=== PATIENT | male | born 1950 | race Caucasian/White ===

== ENCOUNTER → 2017-02-04 | Outpatient (CLI) | payer OTHER, BC ==
[~2017-02-04] MED LIST: ASPEC81 PO; ASPI81TA28 PO; CALC500C3 PO; CHOL1TAB63 PO; METH1LOZ SL; OXYSR10 PO; RXC5 PO; VTMD1000 PO; [UNRECOGNIZED DRUG - REMARK] PO
[2017-02-10 19:16] LABS: 18KDIGG BAND NONREACTIVE (NONREACTIVE); 23KDIGG BAND NONREACTIVE (NONREACTIVE); 23KDIGM BAND NONREACTIVE (NONREACTIVE); 28KDIGG BAND NONREACTIVE (NONREACTIVE); 30KDIGG BAND NONREACTIVE (NONREACTIVE); 39KDIGG BAND NONREACTIVE (NONREACTIVE); 39KDIGM BAND NONREACTIVE (NONREACTIVE); 41KDIGG BAND NONREACTIVE (NONREACTIVE); 41KDIGM BAND NONREACTIVE (NONREACTIVE); 45KDIGG BAND NONREACTIVE (NONREACTIVE); 58KDIGG BAND NONREACTIVE (NONREACTIVE); 66KDIGG BAND NONREACTIVE (NONREACTIVE); 93KDIGG BAND NONREACTIVE (NONREACTIVE)
--- NOTE | 2017-04-12 12:32 | CODING QUERY MEDICAL NECESSITY ---
SUPPORTING DIAGNOSIS NEEDED A supporting diagnosis is required for the test/procedure performed on this patient in order for us to be reimbursed by the patient's insurance. Please provide a supporting diagnosis for the following test/procedure listed below next to the test name along with your signature. *If there is no additional diagnosis for this patient that would support the following test/procedure please document that below next to the test/procedure. Test(s)/Procedure(s) that require a supporting diagnosis: * HEMOGLOBIN A1C DIAGNOSIS: Provider Signature: Date: Thank you Yelitza Sornesen [employer] Once completed, please kindly fax back to [phone] For questions please call [phone]
== END | disposition home or self-care (01) ==
LOC: C.LAB 13:17
PROVIDERS: ATTEND Physician Assistant
DX: Z01.810 Encounter for preprocedural cardiovascular examination (principal); Z01.811 Encounter for preprocedural respiratory examination; Z01.812 Encounter for preprocedural laboratory examination; S70.361A Insect bite (nonvenomous), right thigh, initial encounter; W57.XXXA Bitten or stung by nonvenomous insect and other nonvenomous arthropods, initial encounter

== ENCOUNTER 2017-03-04 07:27 | Inpatient (IN) | payer OTHER, BC ==
[2017-02-04 13:25] VITALS: BMI 34.0
--- NOTE | 2017-02-04 13:59 | PAT Medication Instructions ---
Service Date Feb 04, 2017. Current Home Medication List Aspirin (Aspirin Ec), 81 MG PO HS Calcium Carbonate (Tums), 4 TAB PO qday Cholecalciferol (Vitamin D3), 1 TAB PO BID Cholecalciferol (Vitamin D3), 1 TAB PO 1xweek Methylcobalamin (Methyl B-12), 5,000 MCG SL 2XWK [gastric bypass ], 1 TAB PO BID Medication Instructions For Your Scheduled Surgery - Hold the following medications the morning of surgery: [gastric bypass ], 1 TAB PO BID Calcium Carbonate (Tums), 4 TAB PO qday Methylcobalamin (Methyl B-12), 5,000 MCG SL 2XWK (, wed) Cholecalciferol (Vitamin D3), 1 TAB PO BID Cholecalciferol (Vitamin D3), 1 TAB PO 1xweek (wed) - Take the following medications as scheduled the night before surgery: [gastric bypass ], 1 TAB PO BID Aspirin (Aspirin Ec), 81 MG PO HS Calcium Carbonate (Tums), 4 TAB PO qday Cholecalciferol (Vitamin D3), 1 TAB PO BID Nothing to eat or drink after midnight. No meds AM of surgery If you have any questions please call us at [phone] or [phone] or [phone]
--- NOTE | 2017-02-04 14:30 | DIAGNOSTIC IMAGING REPORT ---
CHEST PREADMISSION(PA/LAT) HISTORY:66 yearsMalePAT . Preoperative exam. COMPARISON: None available. TECHNIQUE: Frontal and lateral views of the chest. FINDINGS: Cardiomediastinal and hilar silhouettes are within normal limits. There is atherosclerosis of the aorta. No pneumothorax, pleural effusion or focal airspace consolidation. No overt edema. Moderate osteoarthritis involves the bilateral glenohumeral joints. Bridging osteophytes are seen throughout the thoracic spine. IMPRESSION: No acute cardiopulmonary process. The above report was generated using voice recognition software. It may contain grammatical, syntax or spelling errors. Electronically signed by: Catrachito Blanchard 02/04/2017 2:28 PM Dictated Date/Time: 02/04/2017 2:27 PM
[2017-02-04 14:44] LABS: BASO % 0.2 %; BASO ABS # 0.02 K/uL (0-0.2); COMPLETE YES; EOS % 1.8 %; HEMATOCRIT 45.9 % (42-52); IG% 0.2 %; LYMPH % 25.9 %; LYMPH ABS # 2.19 K/uL (1.2-3.4); MEAN CELL VOLUME 87.8 fL (80-100); MEAN CORPUSCULAR HEMOGLOBIN 28.9 pg (25-34); MEAN CORPUSCULAR HGB CONC 32.9 g/dl (32-36); MONO % 5.7 %; NEUT % 66.2 %; PLATELET COUNT 262 K/uL (130-400); RED BLOOD COUNT 5.23 M/uL (4.7-6.1); WHITE BLOOD COUNT 8.47 K/uL (4.8-10.8)
[2017-02-04 14:48] LABS: URINE APPEARANCE CLEAR (CLEAR); URINE BILIRUBIN NEG (NEG); URINE COLOR YELLOW; URINE NITRITE NEG (NEG); URINE SPECIFIC GRAVITY 1.034 (1.000-1.030); UROBILINOGEN NEG (NEG)
[2017-02-04 14:50] LABS: MANUAL MICROSCOPIC REQUIRED? NO; REVIEW REQ? NO
[2017-02-04 15:00] LABS: PROTHROMBIN TIME (PATIENT) 10.2 SECONDS (9.0-12.0)
[2017-02-04 16:35] LABS: BUN/CREATININE RATIO 19.5 (10-20); CREATININE 0.75 mg/dl (0.60-1.40); POTASSIUM 4.1 mmol/L (3.5-5.1)
[2017-02-05 06:07] LABS: ESTIMATED AVERAGE GLUCOSE 123 mg/dl; HA1C FLAG Normal (Normal)
--- NOTE | 2017-03-01 12:39 | History and Physical ---
History & Physical Date Mar 01, 2017. Chief Complaint Left knee pain History of Present Illness The patient is a 66 year old male with complaints of Left Knee pain. The pain has been chronic and non-traumatic. He has tried conservative therapies that include NSAIDs, Cortisone injections and PT with no relief. He would like to proceed with a Left total knee arthroplasty. Past Medical/Surgical History PMHx: (1) Osteoarthritis (2) History of Atrial Fibrillation PSHx: (1) Gastric Bypass (2) Lithotripsy (3) Left Elbow surgery Additional History Hepatic Disease: No Endocrine Disorder: No Kidney Disease: No Hypertension: No Heart Disease: No Bleeding Tendencies: No Infectious Diseases: No Allergies Coded Allergies: No Known Allergies (Unverified , 02/04/17) Home Medications Scheduled Aspirin (Aspirin Ec), 81 MG PO HS Calcium Carbonate (Tums), 4 TAB PO qday Cholecalciferol (Vitamin D3), 1 TAB PO BID Cholecalciferol (Vitamin D3), 1 TAB PO 1xweek Methylcobalamin (Methyl B-12), 5,000 MCG SL 2XWK [gastric bypass ], 1 TAB PO BID Physical Examination Skin: warm/dry, no rash Eyes: normal inspection, EOMI ENT: normal ENT inspection Head: normocephalic, atraumatic Neck: supple, no adenopathy Respiratory/Chest: lungs clear, normal breath sounds Cardiovascular: regular rate, rhythm, no murmur Abdomen / GI: normal bowel sounds, non tender Extremities: normal inspection, + pertinent finding (Patient is able to flexion to 115 degrees and extend to 0 degrees. There is medial joint line tenderness. Ligaments are intact. ) Neurologic/Psych: no motor/sensory deficits, alert, oriented x 3 Diagnosis Left knee Primary osteoarthritis Plan of Treatment Patient has failed conservative therapy on NSAIDs, Cortisone injections and PT. We discussed surgical procedures. He would like to proceed with a Left Total Knee arthroplasty. He will be scheduled for a Left total knee arthroplasty. Risks and benefits to surgery were discussed that include but not limit to infection, DVT, pain, stiffness, need for revision surgery, damage to blood vessels, damage to nerves, PE, and anesthesia risks were all discussed with the patient and they wish to proceed. He will have Aspirin 81mg BID for DVT prophylaxis.
[2017-03-04] VITALS (7 sets, daily range): BP systolic 110–152; BP diastolic 66–89; PULSE 58–72; TEMP 36.6–36.9; O2SAT 95–97; Ht 175.3 cm; Wt 106.7 kg
[~2017-03-04] VITALS: Ht 175.3 cm; Wt 106.7 kg
[~2017-03-04 07:27] MED LIST changes: +ACETAMINOPHEN 500 MG TAB PO SCH; -ASPEC81 PO; +BUPIVACAINE 0.5 % 5 MG/1 ML PF 10ML VIAL ONE; +CEFAZOLIN 2000 MG/60 ML D5W 60 ML IV SCH; +CeleBREX 200 MG CAP PO SCH; +DEXAMETHASONE 4 MG TAB PO SCH; +FAMOTIDINE 20 MG TAB PO SCH; +GABAPENTIN 300 MG CAP PO SCH; +LACTATED RINGER'S 1000ML 1,000 ML IV SCH; +LACTATED RINGER'S 1000ML 500 ML IV ONE; +LACTATED RINGER'S 1000ML IV SCH; +METOCLOPRAMIDE HCL 10 MG TAB PO SCH; -OXYSR10 PO; +ROPIVACAINE 5MG/ML 30 ML 150 MG, BUPIVACAINE/EPINEPHR 0.5% MPF 30 ML, KETOROLAC TROMETH... INFIL SCH; -RXC5 PO; +TRANEXAMIC ACID INJ 1,000 MG in SODIUM CHLORIDE 0.9% 100ML 100 ML IV SCH
--- NOTE | 2017-03-04 07:44 | History & Physical Bridge Note ---
H&P Re-Evaluation Bridge Note: I have examined the patient, reviewed the History & Physical and in the interval since the performance of the History & Physical I have noted the following changes of clinical significance: No changes noted
[2017-03-04] MEDS ORDERED: ORTHO JOINT ANESTHETIC ONE (08:09)
[2017-03-04] MEDS ORDERED: POVIDONE-IODINE OP SOLN 30 ML BTL ONE (08:09)
[2017-03-04] MEDS ORDERED: BACITRACIN 50000 UNIT VIAL ONE (08:10)
[2017-03-04] MEDS ORDERED: ATROPINE SULFATE 0.1 MG/ML 5ML SYR IV PRN (08:15)
[2017-03-04] MEDS ORDERED: EpHEDrine SULFATE INJ 50 MG/ML AMP IV PRN (08:15)
[2017-03-04] MEDS ORDERED: FENTANYL CITRATE INJ 50 MCG/1 ML 2 ML VIAL IV PRN (08:15)
[2017-03-04] MEDS ORDERED: ONDANSETRON INJ 2 MG/ML 2 ML VIAL IV PRN ×2 (08:15→12:00)
[2017-03-04] MEDS ORDERED: MIDAZOLAM HCL 1 MG/ML 2ML VIAL ONE (08:47)
[2017-03-04] MEDS ORDERED: FENTANYL CITRATE INJ 50 MCG/1 ML 2 ML VIAL ONE (08:47)
[2017-03-04] MEDS ORDERED: PROPOFOL IV EMULSION 10 MG/ML 20 ML VIAL IV ONE (09:47)
[2017-03-04] MEDS ORDERED: LIDOCAINE HCL 2% 2 ML VIAL (20MG/ML) ONE (09:47)
[2017-03-04] MEDS ORDERED: TAMSULOSIN HCL 0.4 MG CAP PO PRN (12:00)
[2017-03-04] MEDS ORDERED: ALUMINUM/MAGNESIUM/SIMETH (MAALOX MAX) 30 ML UDC PO PRN (12:00)
[2017-03-04] MEDS ORDERED: MoRPHine SULFATE 2 MG/ML CARP IV PRN (12:00)
[2017-03-04] MEDS ORDERED: MAGNESIUM HYDROXIDE SUSP 30 ML UDC PO PRN (12:00)
[2017-03-04] MEDS ORDERED: BISACODYL 10 MG SUPP PR PRN (12:00)
--- NOTE | 2017-03-04 12:22 | DIAGNOSTIC IMAGING REPORT ---
LEFT KNEE 1 OR 2 VIEWS ROUTINE CLINICAL HISTORY: 66 years-old Male presenting with status post knee arthroplasty. TECHNIQUE: Frontal and crosstable lateral views of the left knee were obtained. COMPARISON: None. FINDINGS: Postsurgical changes of total left knee arthroplasty with patellar resurfacing. Surgical drain in place with overlying skin anahi and expected soft tissue emphysema. No apparent fracture or malalignment. No hardware complication. IMPRESSION: Expected postoperative changes status post total left knee arthroplasty with patellar resurfacing. Electronically signed by: Alex Raphael M.D. 03/04/2017 12:21 PM Dictated Date/Time: 03/04/2017 12:20 PM
--- NOTE | 2017-03-04 12:39 | [facility] Operative Report ---
Operative Report Operative Date Mar 04, 2017. Pre-Operative Diagnosis Left knee Primary osteoarthritis Post-Operative Diagnosis Left knee Primary osteoarthritis Procedure(s) Performed Left Total Knee Arthroplasty Surgeon Dr. Alex Galindo Steam Press Tender Surgeon(s) Fredy Darling PA-C Estimated Blood Loss 100 ML Findings As above Specimens a. left knee bone and tissue Drains 2 Hemovac Anesthesia spinal Complication(s) None Disposition Recovery Room / PACU Indications 66-year-old male with endstage arthritis of the left knee. He has failed conservative measures including injections and anti-inflammatories. He wishes to proceed with a total knee arthroplasty. Description of Procedure Risks benefits and alternatives of surgery including but not limited to infection DVT pain stiffness need for surgery damage to blood vessels damage to nerves or risks of anesthesia were discussed with the patient and she wished to proceed. Patient was identified in the laterality was confirmed and marked. She received a preoperative antibiotic is also a spinal anesthetic and a abductor canal block. A well-padded tourniquet was applied and then the limb was prepped and draped in standard manner with ChloraPrep. The limb was exsanguinated and the tourniquet was inflated. I made a standard anterior incision. I sharply incised the skin then utilized Bovie electrocautery as well as the aqua mantis to achieve hemostasis. I made a medial parapatellar arthrotomy immobilized the patella laterally. I then excised the anterior horns of the medial and lateral meniscus as well as the infrapatellar fat pad. I elevated a portion of the MCL off of the tibia. I then pinned into place a patient-matched distal femoral cutting guide and made my distal femoral resection. I then pinned into place a size 7 5 in 1 cutting guide. I made my anterior, posterior and chamfer cuts. I then excised the cruciates and the remaining portions of the menisci. I then pinned into place a patient- matched tibial cutting guide and made my tibial resection. I then pinned into place a size 7 tibia utilizing alignment rods to confirm rotation. I then cut for the post. Utilizing a lamina piano regulator inspector and then removed posterior osteophytes off the femur. I then placed a trial femur into position and cut for the trochlear component. I then sequentially trialed to size 9 polyethylene. There was good soft tissue balancing and range of motion with this polyethylene. I then prepared the patella with a freehand cut utilizing sagittal saw. I sized and drilled for a size 38 patella. There was slight lateral tracking to the patella. A small lateral release was needed. The capsule was preserved. All the trial components were removed. The deep tissues were anesthetized with and ortho mix solution. Then with Simplex HV with gentamicin cement I cemented my definitive components. Definitive components, [employer] 2: Femur 7 Tibia 7 Poly 9 Patella 38 oval Betadine soak was performed. A deep drain was placed. The arthrotomy was closed with interrupted #1 Vicryl suture subcutaneous tissue was closed with interrupted 2-0 Vicryl suture and skin with anahi. Sterile dressings applied and the tourniquet was released. All needle and sponge counts were correct at the end of the procedure patient was transferred to the PACU in stable condition without apparent complication. The PA-C was necessary for assistance with procedure for assistance in positioning, prepping, draping, retraction and closure. I attest to the content of the Intraoperative Record and any orders documented therein. Any exceptions are noted below.
--- NOTE | 2017-03-04 12:55 | Anesthesiology Progress Note ---
Anesthesia Post Op Note Date & Time Mar 04, 2017 at 12:54 Vital Signs Pain Intensity: 0 Vital Signs Past 12 Hours Date Time Temp Pulse Resp B/P (MAP) Pulse Ox O2 Delivery O2 Flow Rate FiO2 03/04/17 12:29 62 16 110/71 98 Nasal Cannula 2 03/04/17 12:20 58 16 118/68 98 Nasal Cannula 2 03/04/17 12:10 36.8 60 16 121/67 98 Nasal Cannula 2 03/04/17 12:00 65 16 120/68 98 Oxymask 5 03/04/17 11:50 63 16 98/68 98 Oxymask 10 03/04/17 11:43 36.9 66 16 106/60 98 Oxymask 10 03/04/17 07:56 36.6 62 22 152/82 96 Room Air Notes Mental Status: alert / awake / arousable, participated in evaluation Pt Amnestic to Procedure: Yes Nausea / Vomiting: adequately controlled Pain: adequately controlled Airway Patency, RR, SpO2: stable & adequate BP & HR: stable & adequate Hydration State: stable & adequate Neuraxial Anesthesia: was administered, sensory block is resolving Anesthetic Complications: no major complications apparent
[2017-03-04] MEDS ORDERED: MoRPHine SULFATE 10 MG/ML CARP/VIAL IV PRN (13:00)
[2017-03-04] MEDS ORDERED: MoRPHine SULFATE 4 MG/ML 1 ML CARP\\VIAL IV PRN (13:00)
[2017-03-04] MEDS: D5W AND 1/2NSS + 20MEQ KCL 1,000 ML IV SCH ×2 (13:32→23:12)
[2017-03-04] MEDS: FERROUS GLUCONATE 324 MG TAB PO SCH ×2 (14:18→17:21)
[2017-03-04] MEDS: ACETAMINOPHEN 500 MG TAB PO SCH ×2 (14:19→21:07)
[2017-03-04] MEDS: CEFAZOLIN IV 2,000 MG in DEXTROSE 5% 50ML 50 ML IV SCH (17:22)
[2017-03-04] MEDS: OXYCODONE HCL IR 5 MG TAB (IMMEDIATE RELEASE) PO PRN (18:25)
[2017-03-04] MEDS ORDERED: [UNRECOGNIZED DRUG - OTHER] PO SCH (21:00)
[2017-03-04] MEDS: SENNA 8.6 MG TAB PO SCH (21:06)
[2017-03-04] MEDS: CHOLECALCIFEROL 1000 INTER.UNIT TAB PO SCH (21:06)
[2017-03-04] MEDS: OXYCODONE HCL 10 MG TABCR (OXYCONTIN) PO SCH (21:06)
[2017-03-04] MEDS: ASPIRIN 81 MG ECTAB PO SCH (21:06)
[2017-03-04] MEDS: DOCUSATE SODIUM 100 MG CAP PO SCH (21:06)
--- NOTE | 2017-03-04 21:53 | Discharge Instructions ---
Discharge Instructions Date of Service Mar 04, 2017. Admission Reason for Admission: Left Knee Osteoarthritis Discharge Discharge Diagnosis / Problem: S/P Left Total Knee Arthroplasty Discharge Goals Goal(s): Decrease discomfort, Improve function Activity Recommendations Activity Limitations: per Instructions/Follow-up section . Instructions / Follow-Up Instructions / Follow-Up ACTIVITY RECOMMENDATIONS: SELF CARE INSTRUCTIONS AFTER TOTAL KNEE REPLACEMENT A. You may need to continue a physical therapy program after discharge from the hospital. There are several options available to you. Your doctor will assist you in selecting the best one for you. 1. An out-patient facility 2 to 3 times a week for therapy or home therapy. 2. Continue working on all exercises taught to you in the hospital. Your goals should be to increase bending of your knee to 90 degrees and beyond and to fully straighten your knee. B. You may progress at your own pace from walking with a walker or crutches to a cane; then to no assistive devices. C. Make walking a part of your daily routine. Be up as much as comfortable with rest periods throughout the day. Rest with leg elevation is very important. Use the ice wrap frequently for the first 3-4 weeks. D. There are no restrictions on activities. You may ride in a car, shop, participate in advertising copy writer and all social activities. E. Wear the long elastic stockings (CHICHO hose) 20 hours a day for 2 weeks after surgery. They can be removed several times a day for laundering and for a bath. F. You may shower, no tub baths until cleared by your doctor. SPECIAL CARE INSTRUCTIONS: VERY IMPORTANT TO READ AND REVIEW A. There are a few signs you need to watch for after you are home. Call [facility] if you notice any of the followin. Increased severe knee pain. Some pain is expected especially when you exercise. 2. Increased swelling in your leg or knee; pain or swelling of the calf muscle in either lower leg. 3. Any fluid drainage from the incision. 4. Shortness of breath or chest pain. B. Please call [facility] at if you have any concerns or questions about your operation or recovery. The doctor or his nurse will return your call promptly. C. You must take antibiotics before dental work, bladder, bowel or other surgery. Your doctor will provide you with a permanent care to carry describing this precaution. IMPORTANT: * REMEMBER TO TAKE ASPIRIN, 81 MG, TWICE DAILY FOR 4 WEEKS UNLESS OTHERWISE DIRECTED. THIS IS YOUR BLOOD THINNER. * CALL IF INCREASED PAIN, REDNESS, DRAINAGE OR FEVER GREATER THAT 101. * WEAR CHICHO HOSE 20 HOURS PER DAY FOR 2 WEEKS. * YOU MAY HAVE A LARGE BAND-AID LIKE DRESSING (SILVERON). THIS WILL REMAIN ON YOUR INCISION FOR 7 DAYS, THEN CAN BE REMOVED. IF INCISION IS LEAKING THROUGH DRESSING, CALL THE OFFICE . FOLLOW UP VISIT: If appointment is not already scheduled: Please call [facility] to make a follow-up appointment for 2 weeks after your surgery at . Current Hospital Diet Patient's current hospital diet: Regular Diet Discharge Diet Recommended Diet: Regular Diet Procedures Procedures Performed: Left Total Knee Arthroplasty Pending Studies Studies pending at discharge: no Laboratory Results Hemoglobin A1c Test 02/04/17 14:07 Range/Units Estimated Average Glucose 123 mg/dl Hemoglobin A1c 5.9 H 4.5-5.6 % Medical Emergencies . Who to Call and When: Medical Emergencies: If at any time you feel your situation is an emergency, please call 911 immediately. . Non-Emergent Contact Non-Emergency issues call your: Surgeon Call Non-Emergent contact if: temperature is above 101.5, your pain is worsening, wound has increased drainage, wound has increased redness . "Provider Documentation" section prepared by Pramod Darling. . VTE Core Measure Inpt VTE Proph given/why not?: Other Anticoagulation [place] Drug Monitoring Program Search Results: patient reviewed within database, no issues identified
[2017-03-05] MEDS: CEFAZOLIN IV 2,000 MG in DEXTROSE 5% 50ML 50 ML IV SCH (01:23)
[2017-03-05 04:00] VITALS: BP 114/69; PULSE 54; TEMP 36.6; O2SAT 96
[2017-03-05] MEDS: ACETAMINOPHEN 500 MG TAB PO SCH ×3 (05:42→21:06)
[2017-03-05 06:02] LABS: HEMATOCRIT 38.6 % (42-52); MEAN CELL VOLUME 87.1 fL (80-100); MEAN CORPUSCULAR HEMOGLOBIN 28.7 pg (25-34); MEAN CORPUSCULAR HGB CONC 32.9 g/dl (32-36); MEAN PLATELET VOLUME 9.1 fL (7.4-10.4); PLATELET COUNT 235 K/uL (130-400); RED BLOOD COUNT 4.43 M/uL (4.7-6.1)
[2017-03-05 06:41] LABS: BUN/CREATININE RATIO 15.5 (10-20); CALCIUM 8.6 mg/dl (8.5-10.1); CREATININE 0.94 mg/dl (0.60-1.40)
--- NOTE | 2017-03-05 06:46 | Orthopedic Progress Note ---
Orthopedic Progress Note Date of Service Mar 05, 2017. Subjective Post OP Day: 1 Reports: feeling well, pain controlled w PO medications, Denies: complaints, chest pain, SOB, nausea / vomiting, light headedness, calf pain Additional Notes: Patient states that he is feeling well this morning. He denies calf pain. He states he did have some numbness in his foot but that has worn off since last night. Objective calves soft nontender, N/V intact, capillary refill less than 2 sec., dressing C /D/I, A&O x3, toes mobile, hemovac drainage (100mL) Dressing is clean dry and intact. His toes are mobile with no calf pain. Date Time Temp Pulse Resp B/P (MAP) Pulse Ox O2 Delivery O2 Flow Rate FiO2 03/05/17 04:00 36.6 54 16 114/69 (84) 96 Room Air 03/04/17 23:20 36.9 58 16 119/72 (88) 95 Room Air 03/04/17 19:15 Room Air 03/04/17 15:40 64 20 123/73 (90) 96 Nasal Cannula 2.0 03/04/17 15:03 66 18 128/80 (96) 97 03/04/17 13:40 72 18 110/69 (83) 96 03/04/17 13:10 65 18 144/89 (107) 97 03/04/17 12:40 Nasal Cannula 2.0 03/04/17 12:40 36.9 64 18 124/66 (85) 95 Nasal Cannula 03/04/17 12:40 95 Nasal Cannula 2.0 03/04/17 12:29 62 16 110/71 98 Nasal Cannula 2 03/04/17 12:20 58 16 118/68 98 Nasal Cannula 2 03/04/17 12:10 36.8 60 16 121/67 98 Nasal Cannula 2 03/04/17 12:00 65 16 120/68 98 Oxymask 5 03/04/17 11:50 63 16 98/68 98 Oxymask 10 03/04/17 11:43 36.9 66 16 106/60 98 Oxymask 10 03/04/17 07:56 36.6 62 22 152/82 96 Room Air Laboratory Results 24 Hours: Test 03/05/17 05:03 Hematocrit 38.6 % Hemoglobin 12.7 g/dL Assessment & Plan Assessment: POD #1 Left TKA Plan: PT/OT Discharge - Home with OPPT DVT prophylaxis - ASA Will be evaluated with neonatal social worker and PT this morning. If he does PT well and drain is producing minimal amount, we can get him discharged today. If drain continues to output, we will observe for one more day. Seen and examined, agree with above Inhouse Planning Pain Management: Oxycontin, PO Tylenol, Oxy IR Discharge Planning Discharge Planning: home with oppt Pain Management: Oxycontin, Oxy IR DVT Prophylaxis: TEDs, ASA Therapy: Physical Therapy
[2017-03-05 07:01] VITALS: BP 121/72; PULSE 56; TEMP 36.6; O2SAT 96
[2017-03-05] MEDS ORDERED: RXC5 PO (07:08)
[2017-03-05] MEDS ORDERED: ASPEC81 PO (07:08)
[2017-03-05] MEDS ORDERED: OXYSR10 PO (07:08)
[2017-03-05] MEDS: MULTIVITAMIN TAB PO SCH (08:22)
[2017-03-05] MEDS: FERROUS GLUCONATE 324 MG TAB PO SCH ×3 (08:22→18:18)
[2017-03-05] MEDS: CHOLECALCIFEROL 1000 INTER.UNIT TAB PO SCH ×2 (08:22→21:05)
[2017-03-05] MEDS: ASPIRIN 81 MG ECTAB PO SCH ×2 (08:23→21:04)
[2017-03-05] MEDS: DOCUSATE SODIUM 100 MG CAP PO SCH ×2 (08:23→21:04)
[2017-03-05] MEDS: OXYCODONE HCL 10 MG TABCR (OXYCONTIN) PO SCH ×2 (08:23→21:04)
[2017-03-05] MEDS: PANTOprazole SOD 40 MG TAB PO SCH (08:23)
[2017-03-05] MEDS: OXYCODONE HCL IR 5 MG TAB (IMMEDIATE RELEASE) PO PRN ×2 (08:24→13:23)
[2017-03-05] MEDS: D5W AND 1/2NSS + 20MEQ KCL 1,000 ML IV SCH ×2 (09:26→09:29)
--- NOTE | 2017-03-05 13:40 | Anesthesiology Progress Note ---
Anesthesia Post Op Note Date & Time Mar 05, 2017 at 13:39 Vital Signs Pain Intensity: 3.0 Vital Signs Past 12 Hours Date Time Temp Pulse Resp B/P (MAP) Pulse Ox O2 Delivery O2 Flow Rate FiO2 03/05/17 07:35 Room Air 03/05/17 07:01 36.6 56 18 121/72 (88) 96 Room Air 03/05/17 04:00 36.6 54 16 114/69 (84) 96 Room Air Notes Mental Status: alert / awake / arousable, participated in evaluation Pt Amnestic to Procedure: Yes Nausea / Vomiting: adequately controlled Pain: adequately controlled Airway Patency, RR, SpO2: stable & adequate BP & HR: stable & adequate Hydration State: stable & adequate Neuraxial Anesthesia: was administered, sensory block resolved Anesthetic Complications: no major complications apparent
[2017-03-05 14:54] VITALS: BP 107/66; PULSE 58; TEMP 36.7; O2SAT 97
[2017-03-05 16:30] VITALS: O2SAT 97
[2017-03-05] MEDS: SENNA 8.6 MG TAB PO SCH (21:00)
[2017-03-05 23:35] VITALS: BP 114/68; PULSE 60; TEMP 36.8; O2SAT 97
[2017-03-06] MEDS: OXYCODONE HCL IR 5 MG TAB (IMMEDIATE RELEASE) PO PRN ×3 (02:55→11:16)
[2017-03-06] MEDS: ACETAMINOPHEN 500 MG TAB PO SCH (05:51)
[2017-03-06 06:47] VITALS: BP 140/88; PULSE 66; TEMP 36.7; O2SAT 98
[2017-03-06] MEDS: ASPIRIN 81 MG ECTAB PO SCH (07:25)
[2017-03-06] MEDS: FERROUS GLUCONATE 324 MG TAB PO SCH (07:25)
[2017-03-06] MEDS: MULTIVITAMIN TAB PO SCH (07:25)
[2017-03-06] MEDS: OXYCODONE HCL 10 MG TABCR (OXYCONTIN) PO SCH (07:25)
[2017-03-06] MEDS: DOCUSATE SODIUM 100 MG CAP PO SCH (07:25)
[2017-03-06] MEDS: PANTOprazole SOD 40 MG TAB PO SCH (07:26)
[2017-03-06] MEDS: CHOLECALCIFEROL 1000 INTER.UNIT TAB PO SCH (07:27)
--- NOTE | 2017-03-06 08:38 | Orthopedic Progress Note ---
Orthopedic Progress Note Date of Service Mar 06, 2017. Subjective Post OP Day: 2 Reports: feeling well, pain controlled w PO medications, Denies: chest pain, SOB , nausea / vomiting, light headedness, calf pain Additional Notes: Stiffness with the knee today but PT and activity went well yesterday. Objective calves soft nontender, N/V intact, capillary refill less than 2 sec., dressing C /D/I (Silverlon in place. Saturated with blood. Will change before D/C.), A&O x3 , toes mobile Date Time Temp Pulse Resp B/P (MAP) Pulse Ox O2 Delivery O2 Flow Rate FiO2 03/06/17 07:30 Room Air 03/06/17 06:47 36.7 66 16 140/88 (105) 98 Room Air 03/05/17 23:45 Room Air 03/05/17 23:35 36.8 60 16 114/68 (83) 97 Room Air 03/05/17 16:30 97 Room Air 03/05/17 14:54 36.7 58 18 107/66 (80) 97 Room Air Assessment & Plan Assessment: POD #2 Left TKA Plan: PT/OT Discharge - Home with OPPT DVT prophylaxis - ASA Plan for d/c today. Seen and examined, agree with above Inhouse Planning Pain Management: Oxycontin, PO Tylenol, Oxy IR Discharge Planning Discharge Planning: home with oppt Pain Management: Oxycontin, Oxy IR DVT Prophylaxis: TEDs, ASA Therapy: Physical Therapy
[2017-03-06 11:10] VITALS: BP 140/88; PULSE 66; TEMP 36.7; O2SAT 98
--- NOTE | 2017-03-08 08:23 | Discharge Summary ---
Orthopedic Discharge Summary Admission Date/Reason Mar 04, 2017 at 07:50 Left Knee Osteoarthritis. Discharge Date/Disposition Mar 06, 2017 Home Diagnosis Principal Diagnosis: S/P Left Total Knee arthroplasty Medication Reconciliation As per discharge instructions Admission Physical Exam As per Admitting History & Physical. Hospital Course POD #1 patient was doing well. Pain was controlled with PO medications. He did have some extra drainage from the drain overnight. He was kept for additional observation of the drain. POD#2 patient was feeling well a little stiffness. His Silverlon dressing was saturated with blood. This was changed for him. He was sent home POD #2 with outpatient PT. Discharge Instructions Please refer to the electronic Patient Visit Report (Discharge Instructions) for additional information.
== END 2017-03-06 11:34 | disposition home or self-care (01) | DRG 470 ==
LOC: C.ACU 07:27 → C.3E 07:50 → ENRESERV 12:22
PROVIDERS: ADMIT Orthopaedic Surgery; ATTEND Orthopaedic Surgery
PROC: 0SRD0J9 Replacement of Left Knee Joint with Synthetic Substitute, Cemented, Open Approach (ICD-10-PCS; principal; 2017-03-04 09:45)
DX: M17.12 Unilateral primary osteoarthritis, left knee (principal); Z98.84 Bariatric surgery status

== ENCOUNTER 2022-12-02 10:53 | Observation (INO) ==
--- NOTE | 2022-11-19 08:46 | PAT Medication Instructions ---
Medication Instructions Date of Service November 19, 2022 Home Medications Celebrate Vitamin 1 dose PO QAM apixaban 5 mg tablet (Eliquis) 5 mg PO BID calcium citrate 600 mg PO BID cholecalciferol (vitamin D3) 125 mcg (5,000 unit) tablet (Vitamin D3) 125 mcg PO BID cyanocobalamin (vitamin B-12) 5,000 mcg sublingual tablet (Vitamin B-12) 5,000 mcg sublingual 2XWK hydrochlorothiazide 25 mg tablet 25 mg PO QAM ASK your prescriber and surgeon apixaban 5 mg tablet (Eliquis) 5 mg PO BID DO NOT take the morning of surgery Celebrate Vitamin 1 dose PO QAM calcium citrate 600 mg PO BID cholecalciferol (vitamin D3) 125 mcg (5,000 unit) tablet (Vitamin D3) 125 mcg PO BID cyanocobalamin (vitamin B-12) 5,000 mcg sublingual tablet (Vitamin B-12) 5,000 mcg sublingual 2XWK hydrochlorothiazide 25 mg tablet 25 mg PO QAM Take evening before surgery calcium citrate 600 mg PO BID cholecalciferol (vitamin D3) 125 mcg (5,000 unit) tablet (Vitamin D3) 125 mcg PO BID Other Notes If you have any questions please call us at [phone] or [phone] or [phone] or [phone]
--- NOTE | 2022-11-19 10:31 | Anesthesiology Consultation ---
Date of Service November 19, 2022 Assessment & Plan (1) Encounter for pre-operative examination: - Check BSG AM DOS - COVID screening: Per assessment on 11/19: No known COVID-19 positive contacts or current COVID-19 related symptoms. Travel screen negative. Patient vaccinated. At surgeon discretion if preop Covid testing being done. - Outpatient joint assessment: Pt currently scheduled for inpatient pathway. If surgeon requests review for outpatient joint pathway, patient is not recommended candidate for outpatient joint program from anesthesia standpoint. - Cardiology note (11/17/22): "Chicho is being scheduled for shoulder surgery on December 02 in [place]. He has described an exercise capacity of around 4 metabolic equivalents or higher without any exertional symptoms and therefore should be considered low risk for coronary ischemia with that upcoming surgery. He is at risk for recurrent atrial fibrillation. A postoperative e lectrocardiogram should be checked. He has a low risk to hold his Eliquis for 2 to 3 days prior to the surgery." Chart Review Chart Review: Acceptable Risk for Surgery and Patient seen in Pre Admission Testing Teaching & Discussion Pre-Anesthesia Teaching/Discussion Notes: Instructed NPO after midnight before surgery,except medications with 15 cc of water. Medication instructions provided according to the PAT guidelines. History Surgery Operation Date: 12/02/22 13:20 Proposed Procedures p Right Total Shoulder Arthroplasty - Anil Turner MD Height/Weight Height: 5 ft 9.5 in Weight: 113.2 kg Allergies Allergy/AdvReac Type Severity Reaction Status Date / Time No Known Allergies Allergy Unverified 11/18/22 16:33 Medications Home Medications Medication Instructions Recorded Confirmed Last Taken Celebrate Vitamin 1 dose PO QAM 11/18/22 11/18/22 Unknown apixaban 5 mg tablet (Eliquis) 5 mg PO BID 11/18/22 11/18/22 Unknown calcium citrate 600 mg PO BID 11/18/22 11/18/22 Unknown cholecalciferol (vitamin D3) 125 125 mcg PO BID 11/18/22 11/18/22 Unknown mcg (5,000 unit) tablet (Vitamin D3) cyanocobalamin (vitamin B-12) 5,000 mcg sublingual 2XWK 11/18/22 11/18/22 Unknown 5,000 mcg sublingual tablet (Vitamin B-12) hydrochlorothiazide 25 mg tablet 25 mg PO QAM 11/18/22 11/18/22 Unknown Past Medical History Medical History Atrial fibrillation on Eliquis Follows with Dr. Austin Clay ([facility]) Borderline diabetes mellitus Borderline hypertension Hearing deficit BL SIMS History of kidney stones Neuropathy LEs TOD (obstructive sleep apnea) Hx not reported per patient TOD "resolved" after weight loss per cardio notes Osteoarthritis Exercise / Class Metabolic Activity II 4-5 Yardwork/Stairs/Walk up hill (one FS (no CP, no SOB)) Past Family History Family History Other No family history of adverse response to anesthesia Past Surgical History Surgical History History of appendectomy History of colonoscopy History of cystoscopy multiple (r/t kidney stones) History of gastric bypass History of left knee replacement Left TKA (03/04/17): SAB at L3/4 (x1 attempt) + PNB at [facility] History of surgery on extremity LUE (r/t logging accident) Hx of LASIK Past Anesthesia History No Hx of Anesthesia Complications and No Family Hx of Anesthesia Complications History of PONV No Hx of PONV and No Hx of Motion Sickness Social History Smoking Status: Never smoker Do You Dip or Chew Tobacco: No (quit 30 years ago) Hx Alcohol Use: Yes Alcohol type: beer and wine alcohol intake frequency: a few times a week Hx Substance Use: No substance use type: does not use Review of Systems Patient denies chest pain, shortness of breath, dyspnea on exertion, fever, chills, cough, wheezing, palpitations. Physical Exam Vital Signs VITALS BP 132/80 P 71 TEMP 98.1 SP02 96%RA RESP 16 PHYSICAL Full cervical extension range of motion. Full TMJ range of motion. TMD 4 finger breaths Mallampati Score 4 (small oral opening) Dentition: upper full dentures Lungs: clear throughout to auscultation Cardiac: regular rate and rhythm, no murmurs noted Spine: normal Carotid arteries: negative bruit Extremities: no LE edema Lab Results Anesthesia Preop Results Results Anesthesia Widget: WBC 8.20 K/ul (4.8-10.8) 11/19/22 Hgb 14.3 g/dl (14.0-18.0) 11/19/22 Hct 44.6 % (42.0-52.0) 11/19/22 Plt 340 K/uL (130-400) 11/19/22 PT 11.0 Seconds (9.0-12.0) 11/19/22 PTT 28.8 Seconds (21.0-31.0) 11/19/22 INR 1.0 (0.9-1.1) 11/19/22 Urine Color Yellow 11/19/22 Urine Appearance Clear (Clear) 11/19/22 Urine pH 5.0 (4.5-7.5) 11/19/22 Urine Specific [place] 1.019 (1.000-1.030) 11/19/22 Urine Protein Negative (Negative) 11/19/22 Urine Glucose (UA) Negative (Negative) 11/19/22 Urine Ketones Negative (Negative) 11/19/22 Urine Blood Negative (Negative) 11/19/22 Urine Nitrite Negative (Negative) 11/19/22 Urine Bilirubin Negative (Negative) 11/19/22 Urine Urobilinogen Negative (Negative) 11/19/22 Urine Leukocyte Esterase Negative (Negative) 11/19/22 Blood Type O Positive 11/19/22 Antibody Screen NEGATIVE 11/19/22 Testing Laboratory Results 11/11/22 SODIUM 140 POTASSIUM 4.2 CHLORIDE 104 CO2 27 BUN 18 CREATININE 1.03 GLUCOSE 115 Electrocardiogram Date: 11/19/22 SR with first degree AVB at 67bpm. Chest X-Ray Date: 11/19/22 FINDINGS: Cardiac silhouette is enlarged. Atherosclerosis of the aorta. No pneumothorax, pleural effusion, airspace consolidation or pulmonary edema. Degenerative changes of the shoulders and spine. IMPRESSION: No acute process. Echocardiogram Date: 07/10/21 EF greater than 55%. Moderate concentric LVH. 3.8 cm aortic root and 3.7 cm ascending aortaboth mildly dilated. No significant valvular disease. COVID-19 Risk Screen Screening Information COVID-19 Screen Date: 11/19/22 Exposure 21 Days Family/Household +COVID Last 21 Days: No Exposure 10 Days Any COVID Exposure Last 10 Days: No Symptoms Last 10 Days Experienced COVID Sx Last 10 Days: No + COVID 0-90 Days COVID + in Last 0-90 Days: No
--- NOTE | 2022-11-25 11:01 | History & Physical Report ---
Date of Service November 25, 2022 Assessment & Plan (1) Primary osteoarthritis, right shoulder: Plan: Treatment options discussed with the patient. He has failed conservative measures. He would like to proceed with surgical intervention. Risks, benefits and alternatives to surgery including but not limited to infection, DVT, pain, stiffness, need for revision surgery, damage to blood vessels, damage to nerves, PE, , were discussed with the patient and they wish to proceed. Plan for right total shoulder arthroplasty scheduled for [facility] on December [address] Turner. Plan on outpatient physical therapy. We will resume home Eliquis postoperatively. All questions answered. Patient will follow-up postop. History of Present Illness Chief Complaint: Right shoulder pain Primary Care Provider: Susan Melvin MD 71-year-old male with past medical history significant for atrial fibrillation, sleep apnea, neuropathy who presents with ongoing right shoulder pain. Patient has failed conservative measures. Pain is interfering with his daily activities. He would like to proceed with surgical intervention. Patient denies headaches, sweats, fevers, chills, double vision, blurred vision, cough, sore throat, dysphagia, chest pain, sob, wheezing, n/v/d/c, numbness, tingling, fatigue, urinary symptoms, mood disorders. ROS positive for right shoulder pain and stiffness. Allergies Allergy/AdvReac Type Severity Reaction Status Date / Time No Known Allergies Allergy Unverified 11/18/22 16:33 Home Medications Medication Instructions Recorded Confirmed Type Celebrate Vitamin 1 dose PO QAM 11/18/22 11/18/22 History apixaban 5 mg tablet (Eliquis) 5 mg PO BID 11/18/22 11/18/22 History calcium citrate 600 mg PO BID 11/18/22 11/18/22 History cholecalciferol (vitamin D3) 125 125 mcg PO BID 11/18/22 11/18/22 History mcg (5,000 unit) tablet (Vitamin D3) cyanocobalamin (vitamin B-12) 5,000 mcg sublingual 2XWK 11/18/22 11/18/22 Hist ory 5,000 mcg sublingual tablet (Vitamin B-12) hydrochlorothiazide 25 mg tablet 25 mg PO QAM 11/18/22 11/18/22 History Past Med/Surg History Medical History Atrial fibrillation on Eliquis Follows with Dr. Austin Clay ([facility]) Borderline diabetes mellitus Borderline hypertension Hearing deficit BL SIMS History of kidney stones Neuropathy LEs TOD (obstructive sleep apnea) Hx not reported per patient TOD "resolved" after weight loss per cardio notes Osteoarthritis Surgical History History of appendectomy History of colonoscopy History of cystoscopy multiple (r/t kidney stones) History of gastric bypass History of left knee replacement Left TKA (03/04/17): SAB at L3/4 (x1 attempt) + PNB at [facility] History of surgery on extremity LUE (r/t logging accident) Hx of LASIK Family History Other No family history of adverse response to anesthesia Social History Smoking Status: Never smoker Second Hand Exposure: No; Hx Alcohol Use: Yes Alcohol type: beer and wine Hx Substance Use: No Preferred Language: Trinidadian Communication Ability: Effective Deboner Required: No Beliefs That Will Affect Care: None and Gnosticism Gnosticism Beliefs: Jainism Current Living Situation: Spouse Feels Safe at Home: Yes Assistive Devices: Denture - Upper, Glasses and Hearing Aid - Bilateral Review of Systems All systems reviewed & are unremarkable except as noted in HPI & below Physical Exam Constitutional: well developed and well nourished; no acute distress Eyes: PERRL, conjunctivae normal, anicteric sclerae ENMT: external ear and nose normal, oropharynx normal Neck: trachea midline, no thyromegaly Respiratory: normal respiratory effort, lungs clear to auscultation Cardiovascular: RRR, no murmur, no edema Musculoskeletal: Right shoulder: Diffuse tenderness. Crepitation with ROM. Negative impingement signs. Active painful ROM. FF to 120 degrees, abduction o 80 degrees, ER to 40 d egrees actively. Normal rotator cuff strength. Skin: no rashes, warm and dry Neurologic: patellar DTR's 2+ bilat, sensation intact Psychiatric: A+Ox3, euthymic affect Results & Data Diagnostic Findings Right shoulder radiographs demonstrate end-stage osteoarthritis right shoulder, [id number]-[id number] glenohumeral joint. Large inferior humeral spur. He has periarticular osteophytes. No proximal migration humeral head.
[~2022-12-02 10:53] MED LIST changes: -ASPI81TA28 PO; -CALC500C3 PO; -CEFAZOLIN 2000 MG/60 ML D5W 60 ML IV SCH; -CHOL1TAB63 PO; -DEXAMETHASONE 4 MG TAB PO SCH; -LACTATED RINGER'S 1000ML 1,000 ML IV SCH; -LACTATED RINGER'S 1000ML 500 ML IV ONE; -LACTATED RINGER'S 1000ML IV SCH; +LR 15ML/HR IV SCH; -METH1LOZ SL; -METOCLOPRAMIDE HCL 10 MG TAB PO SCH; +METOCLOPRAMIDE HCL 10 MG TABLET PO SCH; -ROPIVACAINE 5MG/ML 30 ML 150 MG, BUPIVACAINE/EPINEPHR 0.5% MPF 30 ML, KETOROLAC TROMETH... INFIL SCH; +TRANEXAMIC ACID 1,000 MG **IV Intra-op IV SCH; +TRANEXAMIC ACID 1,000 MG **IV Pre-op IV SCH; -TRANEXAMIC ACID INJ 1,000 MG in SODIUM CHLORIDE 0.9% 100ML 100 ML IV SCH; -VTMD1000 PO; -[UNRECOGNIZED DRUG - REMARK] PO; +ceFAZolin 2000MG 2,000 MG/15 ML SYR IV SCH; +dexAMETHasone 4 MG TAB PO SCH
[2022-12-02] MEDS ORDERED: MIDAZOLAM HCL 1 MG/ML 2ML VIAL ONE (11:45)
[2022-12-02] MEDS ORDERED: LIDOCAINE 2% 2 ML VIAL/AMP(20MG/ML) INFIL ONE (11:45)
[2022-12-02] MEDS ORDERED: ONDANSETRON INJ 2 MG/ML 2 ML VIAL ONE (11:45)
[2022-12-02] MEDS ORDERED: PROPOFOL IV EMULSION 10 MG/ML 20 ML VIAL IV ONE (11:45)
[2022-12-02] MEDS ORDERED: DEXAMETHASONE SOD INJ 4 MG/ML VIAL ONE (11:45)
[2022-12-02] MEDS ORDERED: fentaNYL citrate PF 100 MCG/2 ML VIAL ONE (11:45)
[2022-12-02] MEDS ORDERED: ROCURONIUM BROMIDE 10 MG/ML 5 ML VIAL IV ONE ×6 (11:46→15:18)
[2022-12-02] MEDS ORDERED: ePHEDrine sulfate 50 MG/ML AMP IV PRN (13:03)
[2022-12-02] MEDS ORDERED: ONDANSETRON INJ 2 MG/ML 2 ML VIAL IV PRN ×2 (13:03→19:23)
[2022-12-02] MEDS ORDERED: HYDROmorphone INJ 2 MG/ML SYR/VIAL IV PRN (13:03)
[2022-12-02] MEDS ORDERED: ATROPINE SULFATE 0.1 MG/ML 10ML SYR IV PRN (13:03)
[2022-12-02] MEDS ORDERED: fentaNYL citrate PF 100 MCG/2 ML VIAL IV PRN (13:03)
--- NOTE | 2022-12-02 14:34 | History & Physical Bridge Note ---
Date of Service December 02, 2022 History & Physical Bridge Note I have examined the patient, reviewed the History & Physical and in the interval since the performance of the History & Physical I have noted the following changes of clinical significance: no changes noted
[2022-12-02] MEDS ORDERED: EPINEPHrine HCL INJ 1 MG/ML 30ML ONE (15:31)
[2022-12-02] MEDS ORDERED: SUGAMMADEX SODIUM 200 MG/2 ML VIAL IV ONE (16:31)
[2022-12-02] MEDS ORDERED: MoRPHine SULFATE 2 MG/ML CARP ONE (16:33)
[2022-12-02] MEDS ORDERED: METOPROLOL TARTRATE 1 MG/ML VIAL IV ONE (17:09)
--- NOTE | 2022-12-02 18:03 | Operative Report ---
Post Operative Report Pre & Post Diagnosis Operation Date: 12/02/22 13:05 Pre-Op Diagnosis: Right Shoulder Primary glenohumeral joint osteoarthritis Post-Op Diagnosis: Right Shoulder Primary glenohumeral joint osteoarthritis, Biceps tendinopathy, tenosynovitis. I identified the patient and participated in the time-out.: Yes Procedure Operation Date: 12/02/22 13:05 Actual Procedures p Right Total Shoulder Arthroplasty(Right), biceps tenodesis and tenosynovectomy biceps tendon.- Anil Turner MD Surgeon Anil Turner MD Vegetable Canner César MARTÍNEZ Estimated Blood Loss 200 Findings Consistent with Post-Op Diagnosis Specimens Humeral head cut Drains 2 Hemovac Anesthesia Type General Regional Complications none Disposition Disposition: Recovery Room Indications 71-year-old male with chronic right shoulder pain and stiffness. Patient has advanced glenohumeral osteoarthritis with type A wear pattern no proximal migration normal strength and type I acromion. Patient has [id number] glenohumeral joint with typical inferior humeral osteophytes. Description of Procedure Patient was taken to the operating room anesthetized under regional block and general anesthetic. Patient was placed in a 40 degree beachchair position with a foam headrest protective eyewear all extremities padded teds and SCDs were placed. A towel roll was placed on the medial border of the scapula of the right upper extremity. The arm was examined and range of motion demonstrated 120 degrees flexion 70 degrees AB duction and 30 degrees external rotation. He was muscular and had some moderate obesity. An anterior deltopectoral approach was performed. Longitudinal incision was made in deltopectoral interval. Skin incised sharply and subcutaneous flaps elevated. The deltopectoral interval was identified. The cephalic vein demonstrated a large cephalic vein that was suited to taking it medial with large branches going off to the medial side and one smaller branch to the lateral side.. The branches to the deltoid were cauterized or tied off and then the vein was transposed medially with the pectoralis muscle. The upper centimeter of the pectoralis was released for inferior exposure. Biceps tendon demonstrated large fluid collection around the biceps tendon and extended up to the bicipital groove with chronic scarred tenosynovitis and some loose cartilaginous fragments in the sheath.. The biceps was tenodesed to the pectoralis tendon using #2 FiberWire [id number] sutures. Proximal biceps was resected. Rotator cuff findings demonstrated intact rotator cuff.. The circumflex vessels were tied off with silk ties and divided laterally. There was an anomalous type muscle over the subscapularis that went vertically and went from the subscapularis lower aspect to the conjoined tendon. This was reflected off the subscapularis but retracted with conjoined tendon with the other retractors. the the rotator interval was opened up and released down to the level of the glenoid. The subscapularis tendon was taken down with a transtendinous incision leaving a cuff of tissue for repair on the lesser tuberosity. The humeral head was gradually externally rotated with a blunt Hohmann retractor within the joint around the inferior spurs and the capsule was released off the bone of the humerus carefully as the humerus was gradually externally rotated and a Walsh elevator was used to assist in releasing the inferior capsule of the humerus. The humeral head findings demonstrated large inferior humeral osteophytes and eburnated bone with a very large humeral head. The inferior osteophytes were resected using an artist chisel and rongeur. A #1 Vicryl traction suture was placed into the free edge of the subscapularis tendon. A Fukuda retractor was placed into the joint. Capsule was released with Leal scissors down to the glenoid from the rotator interval down to the 5 o'clock position approximately staying above the level of the axillary nerve. An anterior Bankart retractor was placed. The glenoid and labral findings demonstrated chronically degenerated labrum and the glenoid had concentric central wear with 80% of the articular surface being eburnated and 20% of the superior surface still having very thin articular cartilage. An anterior-inferior and posterior inferior capsule release was performed electrocautery on bone and a Walsh elevator.Attention was taken back to the humeral head. Humeral head was exposed with extension and external rotation. The oscillating saw was used to make an anatomic neck cut removing the articular surface. All the circumferential remaining osteophytes were trimmed with a rongeur. The humerus was sized for a 2 nucleus and a 56 x 21 soft tissue balancing humeral head. The bone was assessed with a thumb press test and there was solid cancellous bone. The guide for the nucleus was placed centrally and then the guidepin was placed. The surface reamer was used followed by the central drill for the nucleus. The trial nucleus was inserted and the cut protector was placed. The humerus was retracted posterior to the glenoid . A Tornier retractor ,Hohmann retractors as well as an anterior Bankart retractor were placed. The glenoid was fully exposed. The Tornier Cortiloc glenoid was used. The large 40 radius size was chosen. The central drill hole was made followed by the reamer for the glenoid followed by widening the central hole for the central post. The guide for the peripheral drill holes was placed and the drill holes were made. The trial reduction performed with stable fixation. The trial removed and the glenoid copiously irrigated with pulsed saline solution. The drill holes were packed with epinephrine-soaked tampons. The [place] G cement was vacuum mixed. The large 40 radius Cortiloc glenoid component was then cemented in position after drying the glenoid after removal of the tampons. Fixation was excellent. All excess cement was cleared. When the cement cured we moved onto removing the cut protector doing a trial reduction with a 56 x 21 mm soft tissue balancing humeral head trial. Stability was assessed and was stable. Soft tissue tension on the subscapularis tendon was satisfactory. The trial components of the humeral head were removed and the 3 drill holes were made in the harder bone in the biceps groove area and transosseous #5 FiberWire sutures were placed. Then the humeral cut surface was reexposed with retractors and after irrigation the size 2 nucleus was impacted leaving it slightly proud until the 56 x 21 mm soft tissue balancing humeral head was placed into the nucleus and then both were impacted into the humerus with a tight press-fit. The humerus was reduced to the glenoid. The stability was verified. The subscapularis tendon was repaired in 2 [id number] #2 FiberWire sutures. Lateral row fixation was performed with interrupted [id number] #2 FiberWire sutures and rotator interval was closed with #2 FiberWire sutures. Range of motion demonstrated 145 degrees forward flexion 100 degrees abduction and 45 degrees external rotation without tension on the the repair. The pectoralis was repaired with hvurbw-ju-siibu #2 FiberWire sutures placing sutures back through the biceps tendon to reinforce the tenodesis. 2 Hemovac drains were placed. Th e deltopectoral interval was repaired with [id number] #1 Vicryl sutures. The subcutaneous tissue was repaired with 2-0 Vicryl sutures and the skin was closed with anahi. Sterile dressings were applied and a sling immobilizer. The patient tolerated the procedure well. Ze MARTÍNEZ acted as first responder throughout the procedure. He functioned as first responder assisting in all aspects of the procedure including patient positioning prepping draping, arm positioning, soft tissue retraction,, instrument management, subcutaneous and skin closure and postop care the patient as well. I attest to the content of the Intraoperative Record and any orders documented therein. Any exceptions are noted below.
--- NOTE | 2022-12-02 18:58 | Anesthesiology Progress Note ---
Date of Service December 02, 2022 Anesthesia Post Procedure Vital Signs Vital Signs: Temp Pulse Pulse Resp BP Pulse Ox O2 Del Method 12/02/22 18:35 66 15 149/85 H 93 Room Air 12/02/22 18:25 89 22 138/81 96 Oxymask 12/02/22 18:15 79 19 148/96 H 96 Oxymask 12/02/22 18:05 97.3 F L 96 H 14 129/83 97 Oxymask 12/02/22 11:37 98.1 F 69 20 143/75 H 98 Room Air O2 Flow Rate 12/02/22 18:35 12/02/22 18:25 1 12/02/22 18:15 3 12/02/22 18:05 5 12/02/22 11:37 Pain Intensity Right Shoulder: Pain Intensity: 0 Transfer of Care Handoff Completed per policy Notes Mental Status: alert / awake / arousable and participated in evaluation Patient Amnestic to Procedure: Yes Nausea / Vomiting: adequately controlled Pain: adequately controlled Airway Patency, RR, SpO2: stable & adequate BP & HR: stable & adequate Hydration State: stable & adequate Anesthetic Complications: no major complications apparent and Pt Satisfied with anesthetic care
--- NOTE | 2022-12-02 19:20 | XRay Report ---
XR shoulder RT min 2V routine CLINICAL HISTORY: Post shoulder surgery COMPARISON: None FINDINGS: Alignment of the right shoulder arthroplasty is anatomic. There is no periprosthetic fract ure. Skin anahi and drains are present. No unexpected radiopaque foreign bodies are present. IMPRESSION: Expected findings following right shoulder arthroplasty. ACT 112: Negative or not required by law. Electronically signed by: Chad Albert M.D. 12/02/2022 7:19 PM
[2022-12-02] MEDS ORDERED: HYDROmorphone INJ 0.5 MG/0.5 ML SYR IV PRN (19:23)
[2022-12-02] MEDS ORDERED: METOCLOPRAMIDE HCL INJ 5 MG/ML 2 ML VIAL IV PRN (19:23)
[2022-12-02] MEDS ORDERED: NALOXONE HCL 0.4 MG/1 ML VIAL/CARP IV PRN (19:23)
[2022-12-02] MEDS ORDERED: bisacodyL 10 MG SUPP PR PRN (19:23)
[2022-12-02] MEDS ORDERED: MAGNESIUM HYDROXIDE SUSP 30 ML UDC PO PRN (19:23)
[2022-12-02] MEDS: SODIUM CHLORIDE 0.9% 1000ML 1,000 ML IV SCH (20:19)
[2022-12-02] MEDS ORDERED: SENNA 8.6 MG TAB PO SCH (21:00)
[2022-12-02] MEDS: CALCIUM CITRATE 950 MG TAB PO SCH (21:48)
[2022-12-02] MEDS: DOCUSATE SODIUM 100 MG CAP PO SCH (21:48)
[2022-12-02] MEDS: ACETAMINOPHEN 500 MG TAB PO SCH (21:48)
[2022-12-02] MEDS: CHOLECALCIFEROL 5,000 UNITS 125 MCG TAB PO SCH (21:48)
[2022-12-02] MEDS: ceFAZolin 2000MG 2,000 MG/15 ML SYR IV SCH (21:49)
[2022-12-03] MEDS: ACETAMINOPHEN 500 MG TAB PO SCH (06:14)
[2022-12-03] MEDS: ceFAZolin 2000MG 2,000 MG/15 ML SYR IV SCH (06:20)
[2022-12-03] MEDS: SODIUM CHLORIDE 0.9% 1000ML 1,000 ML IV SCH (06:53)
[2022-12-03] MEDS: DOCUSATE SODIUM 100 MG CAP PO SCH (07:10)
[2022-12-03] MEDS: CHOLECALCIFEROL 5,000 UNITS 125 MCG TAB PO SCH (07:29)
[2022-12-03] MEDS: CALCIUM CITRATE 950 MG TAB PO SCH (07:29)
[2022-12-03] MEDS: oxyCODONE HCL IR 5 MG TAB (IMMEDIATE RELEASE) PO PRN ×2 (07:31→11:57)
--- NOTE | 2022-12-03 07:53 | Orthopedic Progress Note ---
Date of Service December 03, 2022 Assessment & Plan (1) Primary osteoarthritis, right shoulder: Plan: Postop day #1 right total shoulder arthroplasty -PT/OT: For left TSA protocol -DVT prophylaxis: SCDs, resume home Eliquis twice daily this evening -Pain management as written -A.m. labs are pending -Discharge planning: Discharge home today as long as remains stable. Admission and Anticipated Discharge Date Admission Date: December 02, 2022 Subjective Patient is postop day 1 right simplicity total shoulder arthroplasty. He is doing well this morning. He has no pain. No current complaints. Denies chest pain, shortness of breath, nausea/vomiting/diarrhea, headaches or dizziness. Review of Systems Review of Systems: All systems reviewed & are unremarkable except as noted in Subjective Physical Exam Physical Exam: Right shoulder: Sling in place. Dressing is clean, dry, intact. Hemovac on suction. Fingers are mobile however with weakness with furrier apprentice strength. Has difficulty extending his wrist and still with some numbness. Residual from nerve block. Constitutional: WD/WN, vitals as above Results & Data Vital Signs (Past 12 Hours) Vital Signs Temp Pulse Resp BP Pulse Ox O2 Del Method 12/03/22 07:13 36.8 C 65 16 132/71 94 Room Air 12/03/22 02:00 36.7 C 67 20 144/77 H 94 Room Air 12/02/22 22:43 36.7 C 70 18 134/74 94 Room Air 12/02/22 21:15 36.5 C 106 H 20 145/72 H 95 Room Air 12/02/22 20:15 37.0 C 80 18 128/77 93 Room Air
[2022-12-03 08:59] LABS: Basophils # (auto) 0.02 K/uL (0-0.2); Basophils % (auto) 0.1 %; Hematocrit (blood only) 40.2 % (42.0-52.0); Hemoglobin 12.9 g/dl (14.0-18.0); Immature Granulocytes # (auto) 0.07 K/uL (0.01-0.20); Immature Granulocytes % (auto) 0.4 %; Lymphocytes # (auto) 1.23 K/uL (1.2-3.4); Lymphocytes % (auto) 6.8 %; Mean Corpuscular Hemoglobin 26.3 pg (25.0-34.0); Mean Corpuscular Hgb Conc 32.1 g/dL (32.0-36.0); Mean Platelet Volume 9.1 fL (9.4-12.4); Monocytes # (auto) 1.13 K/uL (0.11-0.59); Monocytes % (auto) 6.3 %; Neutrophils # (auto) 15.56 K/uL (1.40-6.50); Neutrophils % (auto) 86.4 %; Platelet Count 313 K/uL (130-400); RDW Coefficient of Variation 14.4 % (11.5-14.5); RDW Standard Deviation 42.7 fL (36.4-46.3); White Blood Count 18.01 K/ul (4.8-10.8)
[2022-12-03] MEDS ORDERED: MULTIVITAMIN TAB PO SCH (09:00)
[2022-12-03] MEDS ORDERED: hydroCHLOROthiazide 25 MG TAB PO SCH (09:00)
[2022-12-03 09:01] LABS: BUN Creatinine Ratio 18.9 (10-20); Calcium 8.7 mg/dl (8.6-10.3); Creatinine Clr Calc Pharmacy 93.5 ml/min; Est GFR (African American) 99.2 ml/min; Est GFR (Non-African American) 85.6 ml/min; Potassium 3.9 mmol/L (3.5-5.1)
[2022-12-03] MEDS ORDERED: APIXABAN 5 MG TABLET PO SCH (21:00)
[2022-12-04] MEDS ORDERED: CYANOCOBALAMIN (B-12) 2,500 MCG TABLET SL SCH (09:00)
--- NOTE | 2022-12-04 10:25 | Discharge Summary ---
Date of Service December 04, 2022 Admission HPI Per Admitting Provider 71-year-old male with past medical history significant for atrial fibrillation, sleep apnea, neuropathy who presents with ongoing right shoulder pain. Patient has failed conservative measures. Pain is interfering with his daily activities. He would like to proceed with surgical intervention. Patient denies headaches, sweats, fevers, chills, double vision, blurred vision, cough, sore throat, dysphagia, chest pain, sob, wheezing, n/v/d/c, numbness, tingling, fatigue, urinary symptoms, mood disorders. ROS positive for right shoulder pain and stiffness. Admission Exam Per Admitting Provider 71-year-old male with past medical history significant for atrial fibrillation, sleep apnea, neuropathy who presents with ongoing right shoulder pain. Patient has failed conservative measures. Pain is interfering with his daily activities. He would like to proceed with surgical intervention. Patient denies headaches, sweats, fevers, chills, double vision, blurred vision, cough, sore throat, dysphagia, chest pain, sob, wheezing, n/v/d/c, numbness, tingling, fatigue, urinary symptoms, mood disorders. ROS positive for right shoulder pain and stiffness. Principal Diagnosis Right shoulder osteoarthritis Discharge Exam Right shoulder: Sling in place. Dressing is clean, dry, intact. Hemovac on suction. Fingers are mobile however with weakness with radio station engineer strength. Has difficulty extending his wrist and still with some numbness. Residual from nerve block. Constitutional WD/WN, vitals as above Discharge Data Allergies Allergy/AdvReac Type Severity Reaction Status Date / Time No Known Allergies Allergy Unverified 12/02/22 11:28 Procedures Performed Operation Date: 12/02/22 13:05 Actual Procedures p Right Total Shoulder Arthroplasty(Right) - Anli Turner MD Ordered Studies 12/02/22 05:00 US - OR guided needle placemen Routine Hospital Course (1) Primary osteoarthritis, right shoulder: Postop day #1 right total shoulder arthroplasty -PT/OT: For left TSA protocol -DVT prophylaxis: SCDs, resume home Eliquis twice daily this evening -Pain management as written -A.m. labs are pending-reviewed demonstrating leukocytosis likely reactive due to surgical stress/perioperative steroids. -Discharge planning: Discharge home today as long as remains stable. Lab Results 12/02/22 12/02/22 12/03/22 Range/Units 11:38 Unknown 08:19 WBC 18.01 H (4.8-10.8) K/ul RBC 4.90 (4.70-6.10) M/uL Hgb 12.9 L (14.0-18.0) g/dl Hct 40.2 L (42.0-52.0) % MCV 82.0 (80.0-100.0) fL MCH 26.3 (25.0-34.0) pg MCHC 32.1 (32.0-36.0) g/dL RDW Std Deviation 42.7 (36.4-46.3) fL RDW Coeff of [place] 14.4 (11.5-14.5) % Plt Count 313 (130-400) K/uL MPV 9.1 L (9.4-12.4) fL Immature Gran % (Auto) 0.4 % Neut % (Auto) 86.4 % Lymph % (Auto) 6.8 % [place] % (Auto) 6.3 % Eos % (Auto) 0.0 % Baso % (Auto) 0.1 % Neut # (Auto) 15.56 H (1.40-6.50) K/uL Lymph # (Auto) 1.23 (1.2-3.4) K/uL [place] # (Auto) 1.13 H (0.11-0.59) K/uL Eos # (Auto) 0.00 (0-0.50) K/uL Baso # (Auto) 0.02 (0-0.2) K/uL Immature Gran # (Auto) 0.07 (0.01-0.20) K/uL Sodium (136-145) mmol/L Potassium (3.5-5.1) mmol/L Chloride (98-107) mmol/L Carbon Dioxide (21-32) mmol/L Anion Gap (3-11) BUN (6-23) mg/dl Creatinine (0.6-1.4) mg/dl Est Cr Clr Drug Dosing ml/min Est GFR ( Amer) ml/min Est GFR (Non-Af Amer) ml/min BUN/Creatinine Ratio (10-20) Glucose (70-99(Fasting)) mg/dl POC Glucose 108 H (70-99) mg/dl Calcium (8.6-10.3) mg/dl SARS-CoV-2, RNA, NAAT NEGATIVE (NEGATIVE) 12/03/22 Range/Units 08:19 WBC (4.8-10.8) K/ul RBC (4.70-6.10) M/uL Hgb (14.0-18.0) g/dl Hct (42.0-52.0) % MCV (80.0-100.0) fL MCH (25.0-34.0) pg MCHC (32.0-36.0) g/dL RDW Std Deviation (36.4-46.3) fL RDW Coeff of [place] (11.5-14.5) % Plt Count (130-400) K/uL MPV (9.4-12.4) fL Immature Gran % (Auto) % Neut % (Auto) % Lymph % (Auto) % [place] % (Auto) % Eos % (Auto) % Baso % (Auto) % Neut # (Auto) (1.40-6.50) K/uL Lymph # (Auto) (1.2-3.4) K/uL [place] # (Auto) (0.11-0.59) K/uL Eos # (Auto) (0-0.50) K/uL Baso # (Auto) (0-0.2) K/uL Immature Gran # (Auto) (0.01-0.20) K/uL Sodium 136 (136-145) mmol/L Potassium 3.9 (3.5-5.1) mmol/L Chloride 104 (98-107) mmol/L Carbon Dioxide 25 (21-32) mmol/L Anion Gap 7 (3-11) BUN 17 (6-23) mg/dl Creatinine 0.90 (0.6-1.4) mg/dl Est Cr Clr Drug Dosing 93.5 ml/min Est GFR ( Amer) 99.2 ml/min Est GFR (Non-Af Amer) 85.6 ml/min BUN/Creatinine Ratio 18.9 (10-20) Glucose 139 H (70-99(Fasting)) mg/dl POC Glucose (70-99) mg/dl Calcium 8.7 (8.6-10.3) mg/dl SARS-CoV-2, RNA, NAAT (NEGATIVE) Total Time Total Time Spent Total Time Spent (In Minutes): 20 Discharge Plan Discharge Items Patient Disposition: Home - Self-Care Reason For Visit: POST OP Discharge Diagnosis: Right shoulder osteoarthritis Activity: Per Instructions section Non-emergency contact: Surgeon Call non-emergency contact if: you have any medication questions, your pain is not controlled, your pain is concerning for you, you have a fever, your temperature is above 101.5, your wound has increased redness and your wound has increased drainage Follow-up/Referrals: Anil Turner MD [Surgeon] - (Follow-up with Dr. Turner or his PA in 2 weeks from the day of your surgery for your first postoperative visit.) Susan Melvin MD [Primary Care Provider] - Diet: Regular Addtl Attending Provider Instructions: ACTIVITY RECOMMENDATIONS: SELF CARE INSTRUCTIONS AFTER TOTAL SHOULDER ARTHROPLASTY A. You may do daily exercises as taught in physical therapy while in hospital. No lifting with the operative arm. Please schedule your outpatient physical therapy appointment to begin within 2-3 days after leaving the hospital. Specific restrictions will be written on your physical therapy prescription that is provided to you. B. You are to wear your sling/immobilizer at all times EXCEPT when performing your daily exercises, participating in physical therapy and for hygiene purposes. C. You may perform dry, daily dressing changes. Please keep your incision covered. You may shower 48 hours after surgery. Do not apply soap or any ointment/lotions directly over incision. Do not soak incision in bath tub/swimming pool. D. You may use ice as needed to operative shoulder. SPECIAL CARE INSTRUCTIONS: VERY IMPORTANT TO READ AND REVIEW A. There are a few signs you need to watch for after you are home. Call [facility] at [phone] if you experience any of the followin. Increased severe shoulder pain. Some pain is expected especially when you exercise. 2. Increased swelling in you shoulder or arm; pain or swelling in either upper extremity. 3. Any fluid drainage from the incision. 4. Shortness of breath or chest pain. B. Please call [facility] at [phone] if you have any questions or concerns about your operation or recovery. C. Call your physician if: 1. Temperature is greater than 101 degrees (F). 2. Pain is not relieved by prescribed pain medications. 3. Increase drainage or redness from incision. 4. Unanswered questions or concerns. FOLLOW UP VISIT: Please call [facility] at [phone] to schedule a follow up appointment with Dr. Turner or his PA in 12-14 days from your surgery date. Stand-Alone Forms: My [facility] [employer], Smoking Cessation Medications and DC Order Prescriptions: New acetaminophen [Tylenol Extra Strength] 500 mg Tablet 1,000 mg PO Q8 Qty: 60 0RF oxycodone 5 mg Tablet 5 - 10 mg PO .Q4h-6h MDD 6 PRN (Reason: pain) Qty: 30 0RF Rx Instructions: Ongoing therapy, Dr. Turner supervising Continued hydrochlorothiazide 25 mg Tablet 25 mg PO QAM cholecalciferol (vitamin D3) [Vitamin D3] 125 mcg (5,000 unit) Tablet 125 mcg PO BID cyanocobalamin (vitamin B-12) [Vitamin B-12] 5,000 mcg Tablet, Sublingual 5,000 mcg SUBLINGUAL 2XWK Rx Instructions: Wednesday and Wednesday Eliquis 5 mg Tablet 5 mg PO BID Celebrate Vitamin 1 dose PO QAM calcium citrate 600 mg PO BID Discharge Orders: Discharge Order (Routine); Ordered 12/03/22 Ordered By: César Francois Admission Data Admit Date/Time: 12/02/22 18:10 Attending Provider: Anil Turner Admit Provider: Anil Turner Primary Care Provider: Susan Melvin Other Providers: Pramod Tinoco Other Interventions: Discharge Summary Assessment (RN) Last Done: 12/03/22 10:41
== END 2022-12-03 13:00 | disposition home or self-care (01) ==
LOC: 3W 10:53 → ASU 10:53
DX: Z79.01 Long term (current) use of anticoagulants; M19.011 Primary osteoarthritis, right shoulder; I48.91 Unspecified atrial fibrillation; G47.30 Sleep apnea, unspecified; Z79.899 Other long term (current) drug therapy